=== PATIENT | female | born 1995 | race Caucasian/White ===

== ENCOUNTER 2017-10-15 10:22 | Emergency (ER) | payer MEDICAID ==
[~2017-10-15] VITALS: Ht 165.1 cm; Wt 79.6 kg
[2017-10-15 10:26] VITALS: BP 151/66
--- NOTE | 2017-10-15 10:29 | NUR ---
PT TRIAGED AND AMBULATED TO ED BED 5. CATRINA COOMBS GIVEN REPORT. EDMD AWARE OF PT STATUS
--- NOTE | 2017-10-15 10:36 | NUR ---
PT. CAME INTO THE ED DUE TO RASH ON AND OFF FOR 1 MONTH. PT.STATES " I HAVE HAD A RASH FOR ABOUT A MONTH THAT COMES AND GOES AND WHEN IT FLARES UP IT HURTS AND IT ITCHES". PT HAS RAISED RED BUMPS ON LEGS , R ARM , TORSO. DENIES FEVERS, DENIES N/V/D, DENIES SOB. ER MD NOTIFIED. WILL CONTINUE TO MONITOR. MOTHER AT BEDSIDE.
--- NOTE | 2017-10-15 10:50 | NUR ---
DR ANAYA EVALUATING AT BEDSIDE
[2017-10-15 11:02] VITALS: BP 148/62
--- NOTE | 2017-10-15 11:02 | NUR ---
Patient discharged with v/s stable. Written and verbal after care instructions given and explained. Patient alert, oriented and verbalized understanding of instructions. Ambulatory with steady gait. All questions addressed prior to discharge. ID band removed. Patient advised to follow up with PMD. Rx of MOTRIN 800MG, BENADRYL, HYDROCORTISONE TOPICAL CREAM given. Patient educated on indication of medication including possible reaction and side effects. Opportunity to ask questions provided and answered.
== END 2017-10-15 11:02 | disposition home or self-care (01) ==
LOC: MED 10:22
DX: S80.862A Insect bite (nonvenomous), left lower leg, initial encounter (principal); S80.861A Insect bite (nonvenomous), right lower leg, initial encounter; S40.862A Insect bite (nonvenomous) of left upper arm, initial encounter; S40.861A Insect bite (nonvenomous) of right upper arm, initial encounter; Z88.5 Allergy status to narcotic agent; W57.XXXA Bitten or stung by nonvenomous insect and other nonvenomous arthropods, initial encounter; Y93.89 Activity, other specified; Y92.89 Other specified places as the place of occurrence of the external cause; Y99.8 Other external cause status
CPT/HCPCS: 99283

== ENCOUNTER 2018-09-14 19:57 | Emergency (ER) | payer MEDICAID ==
[~2018-09-14] VITALS: Ht 165.1 cm; Wt 86.2 kg
[2018-09-14 20:04] VITALS: BP 107/68
--- NOTE | 2018-09-14 20:06 | NUR ---
TO LOBBY A/W BED , AMBULATORY
--- NOTE | 2018-09-14 21:02 | NUR ---
PT TAKEN TO BED 5
--- NOTE | 2018-09-14 21:10 | NUR ---
PT IS A 23 Y/O FEMALE WHO PRESENTS TO THE ED C/O INSECT BITES. PER PT WOKE UP THIS MORNING WITH BITE TO BILATERAL LEGS. NOTED REDNESS AND CIRCULAR. PT DENIES PAIN AT THIS TIME BUT REPORTS ITCHING. PT TOOK BENADRYL WITH NO RELIEF. PT DENIES CP, SOB, N/V/D. PT AWAKE AND ALERT, RR EVEN/UNLABORED. PT REPOSITIONED FOR COMFORT, BED IN LOWEST POSITION. ER MD DR. GREEN NOTIFIED. WILL CONTINUE TO MONITOR. DENIES PMH ALLERGIES-MORPINE
--- NOTE | 2018-09-14 22:17 | NUR ---
Dr. Maxwell examining patient.
[2018-09-14 23:42] VITALS: BP 120/80
--- NOTE | 2018-09-14 23:42 | NUR ---
Patient discharged with v/s stable. Written and verbal after care instructions given and explained. Patient verbalized understanding. Ambulatory with steady gait. All questions addressed prior to discharge. Advised to follow up with PMD. Work excuse provided for nevaeh, signed by Dr. Maxwell.
== END 2018-09-14 23:42 | disposition home or self-care (01) ==
LOC: MED 19:57
DX: S80.862A Insect bite (nonvenomous), left lower leg, initial encounter (principal); S80.861A Insect bite (nonvenomous), right lower leg, initial encounter; Z88.5 Allergy status to narcotic agent; W57.XXXA Bitten or stung by nonvenomous insect and other nonvenomous arthropods, initial encounter; Y93.89 Activity, other specified; Y92.89 Other specified places as the place of occurrence of the external cause; Y99.8 Other external cause status
CPT/HCPCS: 81025; 99283

== ENCOUNTER 2018-10-13 08:06 | Emergency (ER) | payer MEDICAID ==
[~2018-10-13] VITALS: Ht 162.6 cm; Wt 86.2 kg
[2018-10-13 08:07] VITALS: BP 114/78
[2018-10-13 08:34] VITALS: BP 114/78
== END 2018-10-13 08:34 | disposition home or self-care (01) ==
LOC: MED 08:06
DX: B86 Scabies (principal); Z88.5 Allergy status to narcotic agent
CPT/HCPCS: 99282

== ENCOUNTER 2018-10-14 17:27 | Emergency (ER) | payer MEDICAID ==
[~2018-10-14] VITALS: Ht 162.6 cm; Wt 86.2 kg
[2018-10-14 17:50] VITALS: BP 135/99
--- NOTE | 2018-10-14 17:55 | NUR ---
PT REPORTS COMING IN TO ER YESTERDAY MORNING FOR RASH, DIAGNOSED WITH SCABIES, PT BOSS AT [facility] WANT A SKIN SCRAPING TEST FOR PROOF OF SCABIES.
[2018-10-14 18:48] VITALS: BP 127/88
== END 2018-10-14 18:04 | disposition home or self-care (01) ==
LOC: MED 17:27
DX: R21 Rash and other nonspecific skin eruption (principal); Z87.2 Personal history of diseases of the skin and subcutaneous tissue; Z88.5 Allergy status to narcotic agent
CPT/HCPCS: 99281

== ENCOUNTER 2019-02-27 17:54 | Emergency (ER) | payer MEDICAID ==
[~2019-02-27] VITALS: Ht 162.6 cm; Wt 81.6 kg
[2019-02-27 18:01] VITALS: BP 128/67
--- NOTE | 2019-02-27 22:15 | NUR ---
PT AMBULATED TO ER BED 03
--- NOTE | 2019-02-27 22:15 | NUR ---
23 Y/O FEMALE C/O RASH TO ANTECUBITAL FOSSA, FINGER WEBBING, NECK, AND LEG X 3 WKS. 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 PAIN IS AT A 5/10. DENIES N/V/D. NOTED REDNESS AND RASH THROUGHOUT THE ARMS AND CHEST. ERMD MADE AWARE OF STATUS. SIDE RAILSX1. VSS. CON HOME WHERE PT WORKS HAS HAD AN OUTBREAK OF SCABIES---PRURITUS HAS BEEN TREATED BEFORE WITH COMPLETE RELIEF HX--ECZEMA RX--NONE ALLERGY:MORPHINE
[2019-02-27 23:24] VITALS: BP 128/67
--- NOTE | 2019-02-27 23:24 | NUR ---
Patient discharged with v/s stable. Written and verbal after care instructions given and explained. Patient alert, oriented and verbalized understanding of instructions. Ambulatory with steady gait. All questions addressed prior to discharge. ID band removed. Patient advised to follow up with PMD. Rx of PREMETHRIN given. Patient educated on indication of medication including possible reaction and side effects. Opportunity to ask questions provided and answered. Addendum: 02/28/19 at 0114 by ARIC DISCHARGED BY DR. SPENCER.
== END 2019-02-27 23:24 | disposition home or self-care (01) ==
LOC: MED 17:54
DX: L85.3 Xerosis cutis (principal); B86 Scabies; Z88.5 Allergy status to narcotic agent
CPT/HCPCS: 99283

== ENCOUNTER 2019-03-01 17:51 | Emergency (ER) | payer MEDICAID ==
[~2019-03-01] VITALS: Ht 165.1 cm; Wt 83.0 kg
[2019-03-01 17:56] VITALS: BP 117/60
--- NOTE | 2019-03-01 18:27 | NUR ---
PT AMBULATED TO ER BED 06
--- NOTE | 2019-03-01 18:35 | NUR ---
PT WAS SEEN HERE 02/27 WITH DX OF JULIANA, STATES SHE NEEDS A NOTE TO CLEAR HER TO RETURN TO WORK . DENIES PAIN, VSS; PATIENT POSITIONED FOR COMFORT; HOB ELEVATED; BEDRAILS UP X2; BED DOWN. ER MD MADE AWARE OF PT STATUS.
--- NOTE | 2019-03-01 19:06 | NUR ---
RECEIVED REPORT FROM CORIN MADISON. TRANSFER OF CARE AT THIS TIME.
[2019-03-01 19:14] VITALS: BP 117/60
--- NOTE | 2019-03-01 19:16 | NUR ---
Patient discharged with v/s stable. Written and verbal after care instructions given and explained. Patient alert, oriented and verbalized understanding of instructions. Ambulatory with steady gait. All questions addressed prior to discharge. ID band removed. Patient advised to follow up with PMD. Rx of ATARAX AND ELIMITE TOPICAL CREAM given. Patient educated on indication of medication including possible reaction and side effects. Opportunity to ask questions provided and answered.
== END 2019-03-01 19:16 | disposition home or self-care (01) ==
LOC: MED 17:51
DX: B86 Scabies (principal); Z88.5 Allergy status to narcotic agent
CPT/HCPCS: 99283

== ENCOUNTER 2020-09-17 20:21 | Emergency (ER) | payer MEDICAID ==
[~2020-09-17] VITALS: Ht 162.6 cm; Wt 90.7 kg
[2020-09-17 20:55] VITALS: BP 136/87
--- NOTE | 2020-09-17 20:58 | NUR ---
TO LOBBY A/W BED AMBULATORY
--- NOTE | 2020-09-17 21:09 | NUR ---
AMBULATED TO ER BED 2
--- NOTE | 2020-09-17 22:00 | NUR ---
PATIENT REFUSED PAIN MEDICATIONS AT THIS TIME.
[2020-09-17 22:57] LABS: BASOPHILS # (AUTO) 0.1 K/uL (0.00-0.22); BASOPHILS % (AUTO) 0.4 % (0.0-2.0); EOSINOPHILS # (AUTO) 0.1 K/uL (0-0.4); EOSINOPHILS % (AUTO) 0.6 % (0.0-4.0); HEMOGLOBIN 11.5 g/dL (12.0-16.0); LYMPHOCYTES # (AUTO) 1.9 K/uL (2.5-16.5); LYMPHOCYTES % (AUTO) 13.3 % (20.5-51.1); MEAN CORPUSCULAR HEMOGLOBIN 26 pg (27-31); MEAN CORPUSCULAR HGB CONC 32 g/dL (33-37); MEAN CORPUSCULAR VOLUME 81.6 fL (80-94); MONOCYTES # (AUTO) 0.7 K/uL (0.8-1.0); MONOCYTES % (AUTO) 5.2 % (1.7-9.3); NEUTROPHILS # (AUTO) 11.2 K/uL (1.8-7.7); NEUTROPHILS % (AUTO) 80.5 % (42.2-75.2); PLATELET COUNT (AUTO) 334 K/uL (140-450); RED BLOOD CELL COUNT(AUTO) 4.41 MIL/uL (4.20-5.40); RED CELL DISTRIBUTION WIDTH 15.8 % (11.6-13.7)
[2020-09-17 23:23] LABS: APPEARANCE,URINE CLEAR (CLEAR); BILIRUBIN,URINE NEGATIVE (NEGATIVE); BLOOD, URINE NEGATIVE (NEGATIVE); COLOR,URINE YELLOW (YELLOW); LEUKOCYTE ESTERASE ,URINE TRACE (NEGATIVE); NITRITE, URINE NEGATIVE (NEGATIVE); UGLUCOSE NEGATIVE (NEGATIVE)
[2020-09-17 23:47] LABS: RBC,URINE 0-5 /HPF (0-5); WBC,URINE 0-5 /HPF (0-5)
--- NOTE | 2020-09-18 | NUR ---
Female Stretcher Drier Operator accompanied female patient for Pelvic/vaginal Exam.
[2020-09-18] MEDS ORDERED: CEPH-588 PO (00:04)
[2020-09-18 00:18] VITALS: BP 125/78
== END 2020-09-18 00:18 | disposition home or self-care (01) ==
LOC: MED 20:21
DX: O23.41 Unspecified infection of urinary tract in pregnancy, first trimester (principal); O20.0 Threatened abortion; Z3A.08 8 weeks gestation of pregnancy
CPT/HCPCS: 36415; 76801; 81001; 84702; 85025; 86900; 86901; 87086; 99284

== ENCOUNTER 2020-09-18 10:41 | Emergency (ER) | payer MEDICAID ==
[~2020-09-18] VITALS: Ht 162.6 cm; Wt 98.0 kg
[~2020-09-18 10:41] MED LIST: CEPH-588 PO
[2020-09-18 10:49] VITALS: BP 130/65
--- NOTE | 2020-09-18 10:54 | NUR ---
PT TAKEN TO BED 7.
--- NOTE | 2020-09-18 11:03 | NUR ---
Dr. Jamil is evaluating the patient at bedside.
--- NOTE | 2020-09-18 11:17 | NUR ---
25 Y/O F BIB SELF FROM HOME, PATIENT PRESENTS TO ED WITH ABD CRAMPING THAT STARTED LAST NIGHT, PT STATES SHE WAS HERE LAST NIGHT AND WAS CALLED AROUND 0100 TODAY BECAUSE SHE NEEDS RHOGAM. 3G 1T 0P 1A 1L. DENIES N/V/D; SKIN IS PINK/WARM/DRY; AAOX4 WITH EVEN AND STEADY GAIT; LUNGS CLEAR BL; HR EVEN AND REGULAR; PT DENIES ANY FEVER, CP, SOB, OR COUGH AT THIS TIME; PATIENT STATES PAIN OF 6/10 AT THIS TIME; VSS; PATIENT POSITIONED FOR COMFORT; HOB ELEVATED; BEDRAILS UP X2; BED DOWN. ER MD MADE AWARE OF PT STATUS. PMH: DENIES ALLERGY: MORPHINE
--- NOTE | 2020-09-18 12:23 | NUR ---
KANG Quintero is evaluating the patient at bedside.
[2020-09-18 12:48] VITALS: BP 130/65
--- NOTE | 2020-09-18 12:48 | NUR ---
Pt states she cannot wait due to her son not having a search marketing coordinator. Dr. Jamil made aware and states patient may receive RhoGam with her OBGYN. Pt made aware and will call OB on Sunday.
--- NOTE | 2020-09-18 12:48 | NUR ---
Patient discharged with v/s stable. Written and verbal after care instructions given and explained. Patient verbalized understanding. Ambulatory with steady gait. All questions addressed prior to discharge. Advised to follow up with OBGYN to receive RhoGam injection and instructed patient to have doctor request the labs we summer here.
== END 2020-09-18 12:48 | disposition home or self-care (01) ==
LOC: MED 10:41
DX: O26.891 Other specified pregnancy related conditions, first trimester (principal); Z29.13 Encounter for prophylactic Rho(D) immune globulin; Z3A.01 Less than 8 weeks gestation of pregnancy; Z88.5 Allergy status to narcotic agent
CPT/HCPCS: 36415; 36430; 86850; 86886; 86900; 86901; 99285